=== PATIENT | male | born 1970 | race Caucasian/White ===

== ENCOUNTER 2017-03-04 02:54 | Emergency (ER) | payer MEDICARE ==
[2017-03-04 05:13] LABS: HEMOGLOBIN 14.9 gm/dl (14.0-17.5); RED BLOOD COUNT 4.72 M/UL (4.20-5.50); WHITE BLOOD COUNT 12.8 K/UL (4.5-11.0)
[2017-03-04 07:31] LABS: BUN/CREATININE RATIO 18 (0-10)
== END 2017-03-04 09:54 | disposition home or self-care (01) ==
LOC: ER1 02:54
PROVIDERS: Student in an Organized Health Care Education/Training Program
DX: R10.84 Generalized abdominal pain (principal); R11.2 Nausea with vomiting, unspecified; R19.7 Diarrhea, unspecified
CPT/HCPCS: 36415; 71010; 80053; 81001; 83605; 83690; 85025; 85610; 85730; 87040; 96361; 96374; 96375; 96376; 99284; C9113; J2060; J2405; J7030; J7050; Q9962

== ENCOUNTER 2022-06-19 12:04 | Inpatient (IN) | payer OTHER, MEDICARE ==
[~2022-06-19] VITALS: Ht 185.4 cm; Wt 122.5 kg
[2022-06-19 13:10] LABS: HEMOGLOBIN 14.5 gm/dl (14.0-17.5); RED BLOOD COUNT 4.7 M/UL (4.20-5.50); WHITE BLOOD COUNT 7.3 K/UL (4.5-11.0)
[2022-06-19 13:34] LABS: BUN/CREATININE RATIO 17 (0-10)
[2022-06-19] MEDS ORDERED: SENNOSIDES-DOC1 EACH PO (15:54)
[2022-06-19] MEDS ORDERED: PROTONIX 40 MG40 M1 PO (15:54)
[2022-06-19] MEDS ORDERED: CLARITIN10 MG PO (15:55)
[2022-06-20 03:52] LABS: HEMOGLOBIN 13.7 gm/dl (14.0-17.5); RED BLOOD COUNT 4.47 M/UL (4.20-5.50); WHITE BLOOD COUNT 7.3 K/UL (4.5-11.0)
[2022-06-20 04:29] LABS: BUN/CREATININE RATIO 17 (0-10)
[2022-06-21 05:25] LABS: HEMOGLOBIN 13.8 gm/dl (14.0-17.5); RED BLOOD COUNT 4.42 M/UL (4.20-5.50); WHITE BLOOD COUNT 8.9 K/UL (4.5-11.0)
[2022-06-21 05:44] LABS: BUN/CREATININE RATIO 19 (0-10)
[2022-06-22 04:50] LABS: RED BLOOD COUNT 4.27 M/UL (4.20-5.50); WHITE BLOOD COUNT 6.8 K/UL (4.5-11.0)
[2022-06-22 05:36] LABS: BUN/CREATININE RATIO 16 (0-10)
[2022-06-22] MEDS ORDERED: ZESTRIL2.5 MG PO (10:07)
[2022-06-23 06:41] LABS: HEMOGLOBIN 12.7 gm/dl (14.0-17.5); RED BLOOD COUNT 4.26 M/UL (4.20-5.50); WHITE BLOOD COUNT 5.6 K/UL (4.5-11.0)
[2022-06-23 07:19] LABS: BUN/CREATININE RATIO 14 (0-10)
[2022-06-24 06:48] LABS: HEMOGLOBIN 13.3 gm/dl (14.0-17.5); RED BLOOD COUNT 4.45 M/UL (4.20-5.50); WHITE BLOOD COUNT 5.7 K/UL (4.5-11.0)
[2022-06-24 07:15] LABS: BUN/CREATININE RATIO 16 (0-10)
[2022-06-24] MEDS ORDERED: CILOXAN 0.3% O2.5 ML EARLF (17:42)
[2022-06-24] MEDS ORDERED: POLYETHYLENE GL17 GM PO (17:42)
[2022-06-24] MEDS ORDERED: STIMULANT LAXA1 EACH PO (17:42)
[2022-06-24] MEDS ORDERED: LISINOPRIL5 MG PO (17:42)
[2022-06-24] MEDS ORDERED: PERCOCET 5/325 T1 EA PO (17:42)
== END 2022-06-24 17:50 | disposition home or self-care (01) | DRG 603 ==
LOC: ER1 12:04 → CDU 15:28 → MED SURG 4 15:28
PROVIDERS: Internal Medicine; Orthopaedic Surgery; Physician Assistant Medical; ADMIT Internal Medicine
PROC: 0H9DXZZ Drainage of Right Lower Arm Skin, External Approach (ICD-10-PCS; principal; 2022-06-20 15:27)
DX: L02.416 Cutaneous abscess of left lower limb (principal); Z68.41 Body mass index [BMI] 40.0-44.9, adult; L03.116 Cellulitis of left lower limb; Z20.822 Contact with and (suspected) exposure to COVID-19; H60.92 Unspecified otitis externa, left ear; F17.220 Nicotine dependence, chewing tobacco, uncomplicated; E66.01 Morbid (severe) obesity due to excess calories; F43.10 Post-traumatic stress disorder, unspecified; F19.10 Other psychoactive substance abuse, uncomplicated; Z82.49 Family history of ischemic heart disease and other diseases of the circulatory system; Z83.3 Family history of diabetes mellitus
CPT/HCPCS: 36415; 73201; 80048; 80053; 80202; 83735; 85025; 85027; 85652; 86140; 87040; 87070; 87205; 96374; 99284; J0360; J1100; J1170; J1885; J2250; J2405; J2543; J2704; J3370; J7030; J7070; Q9967

== ENCOUNTER → 2022-06-25 | Outpatient (CLI) | payer MEDICARE ==
[~2022-06-25] VITALS: Ht 185.4 cm; Wt 122.5 kg
[~2022-06-25] MED LIST: CILOXAN 0.3% O2.5 ML EARLF; CLARITIN10 MG PO; LISINOPRIL5 MG PO; PERCOCET 5/325 T1 EA PO; POLYETHYLENE GL17 GM PO; PROTONIX 40 MG40 M1 PO; SENNOSIDES-DOC1 EACH PO; STIMULANT LAXA1 EACH PO; ZESTRIL2.5 MG PO
== END ==
LOC: OPSV 13:00
DX: L03.114 Cellulitis of left upper limb (principal)
CPT/HCPCS: 96365; J0878

== ENCOUNTER → 2022-08-16 | Outpatient (CLI) | payer MEDICARE, OTHER ==
[~2022-08-16] MED LIST changes: +OMEPRAZOLE20 M1 PO
== END ==
LOC: KOH-I 13:40
DX: S92.351A Displaced fracture of fifth metatarsal bone, right foot, initial encounter for closed fracture (principal)
CPT/HCPCS: 73630

== ENCOUNTER → 2022-08-19 | Outpatient (CLI) | payer MEDICARE, OTHER ==
[2022-08-19 12:19] LABS: BUN/CREATININE RATIO 25 (0-10)
[2022-08-19 12:36] LABS: HEMOGLOBIN 13.9 gm/dl (14.0-17.5); RED BLOOD COUNT 4.53 M/UL (4.20-5.50); WHITE BLOOD COUNT 6.5 K/UL (4.5-11.0)
== END ==
LOC: OPSV2 10:00
PROVIDERS: Podiatrist Foot & Ankle Surgery
DX: Z01.818 Encounter for other preprocedural examination (principal)
CPT/HCPCS: 80048; 85027; 93005

== ENCOUNTER → 2022-08-25 | Day surgery (SDC) | payer MEDICARE | END | disposition home or self-care (01) | LOC: OR 07:01 | DX: S92.35 Fracture of fifth metatarsal bone (principal); S92.351K Displaced fracture of fifth metatarsal bone, right foot, subsequent encounter for fracture with nonunion; M21.6X1 Other acquired deformities of right foot; M21.171 Varus deformity, not elsewhere classified, right ankle; S92.34 Fracture of fourth metatarsal bone; S92.341K Displaced fracture of fourth metatarsal bone, right foot, subsequent encounter for fracture with nonunion; V89.2XXD Person injured in unspecified motor-vehicle accident, traffic, subsequent encounter; I10 Essential (primary) hypertension; K21.9 Gastro-esophageal reflux disease without esophagitis | CPT/HCPCS: 73630; 76000; C1713; J0690; J1100; J1170; J1885; J2001; J2250; J2405; J2704; J2795; J3010; J3370 ==